=== PATIENT | female | born 1955 | race American Indian/Alaskan Native ===

== ENCOUNTER 2021-06-30 10:30 | Outpatient (CLI) | payer MEDICARE, OTHER ==
--- NOTE | 2021-07-02 14:42 | Mammography Report ---
DIGITAL SCREENING MAMMOGRAM WITH CAD, 06/30/2021 CLINICAL INFORMATION / INDICATION: Routine screening mammography. TECHNIQUE: Digital bilateral 2D mammography was obtained in the craniocaudal and mediolateral obliqu e projections. This examination was interpreted with the benefit of Computer-Aided Detection analysis . COMPARISON: None available FINDINGS: Breast Density: The breasts are heterogeneously dense, which may obscure small masses. No dominant mass, suspicious calcifications, or architectural distortion in the right breast. There is architectural distortion in the upper inner quadrant of the left breast, middle depth. This is best seen on the cc view. Further evaluation with spot compression views and left breast ultrasoun d is recommended. IMPRESSION: Left breast architectural distortion, upper inner quadrant. Recommend spot compression vi ews and left breast ultrasound for further evaluation. Follow up recommendation: Special View: Spot BI-RADS Category 0: Incomplete. Needs additional imaging evaluation and/or prior mammograms for farhad rison. A "normal" or negative report should not discourage follow up or biopsy of a clinically significant f inding. A written summary of these findings will be mailed to the patient. The patient will be entered into a mammography reporting system which will generate a reminder letter for the patient's next appointmen t at the appropriate interval. The [employer] recommends yearly mammograms starting at age 40 and continuing as l yesi as a woman is in good health. Breast MRI is recommended for women with an approximate 20-25% or greater lifetime risk of breast cancer, including women with a strong family history of breast or ova emilie cancer or who have been treated for Hodgkin's disease. Signer Name: Virginia Ireland MD Signed: 07/02/2021 2:36 PM Workstation Name: [id number]
== END 2021-06-30 10:31 | disposition home or self-care (01) ==
LOC: SPVWC 10:30
PROVIDERS: ATTEND Obstetrics & Gynecology
DX: Z12.31 Encounter for screening mammogram for malignant neoplasm of breast (principal)
CPT/HCPCS: 77067